=== PATIENT | female | born 1930 | race Asian ===

== ENCOUNTER 2018-03-04 13:36 | Inpatient (IN) | payer OTHER ==
[~2018-03-04] VITALS: Ht 137.2 cm; Wt 33.2 kg
[~2018-03-04 13:36] MED LIST: ASPIR-LOW81 MG PO; CALCIUM + VITA1 EAC1 PO; DITROPAN XL10 MG PO; LIDEX 0.05% OIN15 GM TP; PERSANTINE50 MG PO; TWYNSTA PO; ULTRAM50 MG PO
[2018-03-04 14:44] LABS: TROP-I INTERPRETATION NEGATIVE; TROPONIN-I < 0.01 ng/mL (0.0-0.30)
[2018-03-04 14:49] LABS: ALBUMIN 4.1 G/DL (3.2-4.8); ALKALINE PHOSPHATASE 95 IU/L (3-129); ALT (GPT) 11 IU/L (3-49); AST (GOT) 24 IU/L (2-34); CREATININE 0.7 MG/DL (0.6-1.3); GFR ESTIMATE (CALCULATED) > 59 mL/min/; GLUCOSE 161 mg/dL (70-99); TOTAL PROTEIN 6.9 G/DL (6.4-8.3); UREA NITROGEN (BUN) 14 mg/dL (9-23)
[2018-03-04 14:58] LABS: HEMATOCRIT 33.7 % (36.0-46.0); HEMOGLOBIN 12.5 G/DL (11.9-15.5); MCH 31.2 PG (29.0-34.0); MCHC 37.1 G/DL (30.0-36.0); PLATELET COUNT 184 K/uL (156-360); RBC DIS.WIDTH-CV 11.9 % (11.8-14.6); RBC DIS.WIDTH-SD 36.1 % (39-53); RED BLOOD COUNT 4.01 M/uL (3.80-5.20); WHITE BLOOD COUNT 6.5 K/uL (4.1-10.2)
[2018-03-04 15:02] LABS: CHLORIDE 78 MEQ/L (99-109); POTASSIUM 3.1 MEQ/L (3.7-5.4)
[2018-03-04 15:06] LABS: SODIUM 109 MEQ/L (136-147)
[2018-03-04] MEDS ORDERED: DILTIAZEM 24HR300 MG PO (15:45)
[2018-03-04] MEDS ORDERED: VITAMIN D31000 UNI2 PO (15:45)
[2018-03-04] MEDS ORDERED: HYGROTON25 MG PO (15:46)
[2018-03-04] MEDS ORDERED: COZAAR25 MG PO (15:47)
[2018-03-04 16:37] LABS: MAGNESIUM 1.4 mg/dl (1.3-2.7); URIC ACID 2.9 mg/dL (3.1-9.2)
[2018-03-04 17:37] VITALS: BP 163/81
[2018-03-04 19:17] LABS: TROP-I INTERPRETATION NEGATIVE; TROPONIN-I < 0.01 ng/mL (0.0-0.30)
[2018-03-04 19:26] LABS: CHLORIDE 77 MEQ/L (99-109); CREATININE 0.6 MG/DL (0.6-1.3); GFR ESTIMATE (CALCULATED) > 59 mL/min/; GLUCOSE 177 mg/dL (70-99); POTASSIUM 2.9 MEQ/L (3.7-5.4); UREA NITROGEN (BUN) 15 mg/dL (9-23)
[2018-03-04 19:33] LABS: SODIUM 109 MEQ/L (136-147)
[2018-03-04 23:54] VITALS: BP 122/62; BP 131/69
[2018-03-05] VITALS (8 sets, daily range): BP systolic 83–133; BP diastolic 51–79
[2018-03-05 00:48] LABS: CHLORIDE 80 mEq/L (99-109)
[2018-03-05 01:00] LABS: TROP-I INTERPRETATION NEGATIVE; TROPONIN-I 0.02 ng/mL (0.0-0.30)
[2018-03-05 01:11] LABS: CREATININE 0.8 mg/dL (0.6-1.3); GFR ESTIMATE (CALCULATED) > 59 mL/min/
[2018-03-05 01:12] LABS: UREA NITROGEN (BUN) 18 mg/dL (9-23)
[2018-03-05 01:15] LABS: GLUCOSE 114 mg/dL (70-99); POTASSIUM 3.9 mEq/L (3.7-5.4); SODIUM 111 mEq/L (136-147)
[2018-03-05 07:52] LABS: ALBUMIN 3.3 G/DL (3.2-4.8); CHLORIDE 84 MEQ/L (99-109); CREATININE 0.8 MG/DL (0.6-1.3); GFR ESTIMATE (CALCULATED) > 59 mL/min/; GLUCOSE 91 mg/dL (70-99); PHOSPHORUS 3.1 mg/dL (2.5-4.9); UREA NITROGEN (BUN) 19 mg/dL (9-23)
[2018-03-05 07:53] LABS: TROP-I INTERPRETATION NEGATIVE; TROPONIN-I 0.02 ng/mL (0.0-0.30)
[2018-03-05 07:55] LABS: POTASSIUM 4.8 MEQ/L (3.7-5.4)
[2018-03-05 07:56] LABS: SODIUM 111 MEQ/L (136-147)
[2018-03-05 08:11] LABS: BASOPHIL (%) 0.1 % (0-1); EOSINOPHIL (%) 0.4 % (0-5); HEMATOCRIT 33.2 % (36.0-46.0); HEMOGLOBIN 12.5 G/DL (11.9-15.5); IMMATURE GRANULOCYTE (%) 0.4 % (0.0-0.7); LYMPHOCYTE (%) 7.4 % (15-42); LYMPHOCYTE COUNT 0.6 K/uL (1.0-2.8); MCH 31.8 PG (29.0-34.0); MCHC 37.7 G/DL (30.0-36.0); MCV 84.5 FL (83-99); MONOCYTE (%) 8.3 % (3-12); MONOCYTE COUNT 0.7 K/uL (0-0.8); NEUTROPHIL (%) 83.4 % (45-76); PLATELET COUNT 196 K/uL (156-360); RBC DIS.WIDTH-CV 12.2 % (11.8-14.6); RBC DIS.WIDTH-SD 37.3 % (39-53); RED BLOOD COUNT 3.93 M/uL (3.80-5.20); WHITE BLOOD COUNT 8.3 K/uL (4.1-10.2)
[2018-03-05 14:16] LABS: APPEARANCE CLEAR ((CLEAR)); BILIRUBIN NEGATIVE; BLOOD NEGATIVE; COLOR YELLOW ((YELLOW)); GLUCOSE (STRIP) 50; KETONES NEGATIVE; LEUKOCYTES NEGATIVE; NITRITE NEGATIVE; PROTEIN (STRIP) NEGATIVE; SPECIFIC GRAVITY 1.015 (1.000-1.030); UCUL ADDED? NO; UROBILINOGEN 0.2 MG/DL (0.2-1.0)
[2018-03-05 17:09] LABS: CHLORIDE 86 MEQ/L (99-109); CREATININE 1.1 MG/DL (0.6-1.3); GFR ESTIMATE (CALCULATED) 50 mL/min/; GLUCOSE 125 mg/dL (70-99); POTASSIUM 5.1 MEQ/L (3.7-5.4); UREA NITROGEN (BUN) 25 mg/dL (9-23)
[2018-03-05 17:10] LABS: SODIUM 111 MEQ/L (136-147)
[2018-03-05 20:40] LABS: CHLORIDE 87 MEQ/L (99-109); CREATININE 1.2 MG/DL (0.6-1.3); GFR ESTIMATE (CALCULATED) 45 mL/min/; GLUCOSE 133 mg/dL (70-99); POTASSIUM 5.3 MEQ/L (3.7-5.4); UREA NITROGEN (BUN) 24 mg/dL (9-23)
[2018-03-05 20:50] LABS: SODIUM 111 MEQ/L (136-147)
[2018-03-06] VITALS (7 sets, daily range): BP systolic 117–187; BP diastolic 68–96
[2018-03-06 00:59] LABS: POTASSIUM 5.3 mEq/L (3.7-5.4)
[2018-03-06 01:01] LABS: GLUCOSE 102 mg/dL (70-99)
[2018-03-06 01:05] LABS: GFR ESTIMATE (CALCULATED) 56 mL/min/
[2018-03-06 01:06] LABS: UREA NITROGEN (BUN) 22 mg/dL (9-23)
[2018-03-06 01:21] LABS: CHLORIDE 92 mEq/L (99-109); SODIUM 117 mEq/L (136-147)
[2018-03-06 05:46] LABS: BASOPHIL (%) 0.2 % (0-1); EOSINOPHIL (%) 0.9 % (0-5); EOSINOPHIL COUNT 0.1 K/uL (0-0.3); HEMATOCRIT 30.9 % (36.0-46.0); HEMOGLOBIN 11.2 G/DL (11.9-15.5); IMMATURE GRANULOCYTE (%) 0.5 % (0.0-0.7); LYMPHOCYTE (%) 20.8 % (15-42); LYMPHOCYTE COUNT 1.2 K/uL (1.0-2.8); MCH 31.4 PG (29.0-34.0); MCHC 36.2 G/DL (30.0-36.0); MCV 86.6 FL (83-99); MONOCYTE (%) 13.3 % (3-12); MONOCYTE COUNT 0.8 K/uL (0-0.8); NEUTROPHIL (%) 64.3 % (45-76); NEUTROPHIL COUNT 3.7 K/uL (1.8-6.4); PLATELET COUNT 185 K/uL (156-360); RBC DIS.WIDTH-CV 12.7 % (11.8-14.6); RBC DIS.WIDTH-SD 40.1 % (39-53); RED BLOOD COUNT 3.57 M/uL (3.80-5.20); WHITE BLOOD COUNT 5.7 K/uL (4.1-10.2)
[2018-03-06 06:21] LABS: ALKALINE PHOSPHATASE 83 IU/L (3-129); ALT (GPT) 11 IU/L (3-49); AST (GOT) 20 IU/L (2-34); CHLORIDE 93 MEQ/L (99-109); CREATININE 0.9 MG/DL (0.6-1.3); GFR ESTIMATE (CALCULATED) > 59 mL/min/; GLUCOSE 97 mg/dL (70-99); POTASSIUM 5.5 MEQ/L (3.7-5.4); UREA NITROGEN (BUN) 21 mg/dL (9-23)
[2018-03-06 06:26] LABS: SODIUM 118 MEQ/L (136-147); TOTAL BILIRUBIN 0.5 MG/DL (0.0-1.0); TOTAL PROTEIN 5.2 G/DL (6.4-8.3)
[2018-03-06 07:09] LABS: TROP-I INTERPRETATION NEGATIVE; TROPONIN-I 0.01 ng/mL (0.0-0.30)
[2018-03-06 08:52] LABS: THYROTROPIN (TSH) 1.5 MIU/L (0.4-5.5)
[2018-03-06 12:16] LABS: D-DIMER ELISA < 150.00 ng/mLDDU (<230)
[2018-03-06 14:28] LABS: CHLORIDE 96 MEQ/L (99-109); CREATININE 0.9 MG/DL (0.6-1.3); GFR ESTIMATE (CALCULATED) > 59 mL/min/; POTASSIUM 4.4 MEQ/L (3.7-5.4); SODIUM 121 MEQ/L (136-147); UREA NITROGEN (BUN) 18 mg/dL (9-23)
[2018-03-06 14:32] LABS: GLUCOSE 179 mg/dL (70-99)
[2018-03-06 18:54] LABS: CHLORIDE 97 MEQ/L (99-109); GFR ESTIMATE (CALCULATED) 56 mL/min/; POTASSIUM 4.7 MEQ/L (3.7-5.4); SODIUM 122 MEQ/L (136-147); UREA NITROGEN (BUN) 18 mg/dL (9-23)
[2018-03-06 18:55] LABS: GLUCOSE 95 mg/dL (70-99)
[2018-03-07 00:47] LABS: CHLORIDE 97 mEq/L (99-109); POTASSIUM 3.9 mEq/L (3.7-5.4); SODIUM 126 mEq/L (136-147)
[2018-03-07 00:49] LABS: GLUCOSE 103 mg/dL (70-99)
[2018-03-07 00:53] LABS: CREATININE 0.8 mg/dL (0.6-1.3); GFR ESTIMATE (CALCULATED) > 59 mL/min/
[2018-03-07 00:54] LABS: UREA NITROGEN (BUN) 15 mg/dL (9-23)
[2018-03-07 03:44] VITALS: BP 140/87
[2018-03-07 07:13] LABS: CHLORIDE 96 MEQ/L (99-109); CREATININE 0.8 MG/DL (0.6-1.3); GFR ESTIMATE (CALCULATED) > 59 mL/min/; GLUCOSE 86 mg/dL (70-99); POTASSIUM 3.8 MEQ/L (3.7-5.4); SODIUM 127 MEQ/L (136-147); UREA NITROGEN (BUN) 15 mg/dL (9-23)
[2018-03-07 08:37] VITALS: BP 148/98
[2018-03-07 11:00] VITALS: BP 138/84
[2018-03-07 12:12] LABS: CHLORIDE 94 MEQ/L (99-109); CREATININE 0.8 MG/DL (0.6-1.3); GFR ESTIMATE (CALCULATED) > 59 mL/min/; GLUCOSE 103 mg/dL (70-99); POTASSIUM 3.4 MEQ/L (3.7-5.4); SODIUM 124 MEQ/L (136-147); UREA NITROGEN (BUN) 16 mg/dL (9-23)
[2018-03-07 16:19] VITALS: BP 179/87
[2018-03-07 18:22] LABS: CHLORIDE 96 MEQ/L (99-109); CREATININE 0.9 MG/DL (0.6-1.3); GFR ESTIMATE (CALCULATED) > 59 mL/min/; GLUCOSE 125 mg/dL (70-99); SODIUM 125 MEQ/L (136-147); UREA NITROGEN (BUN) 21 mg/dL (9-23)
[2018-03-07 18:23] LABS: POTASSIUM 4.3 MEQ/L (3.7-5.4)
[2018-03-07 21:17] VITALS: BP 168/92
[2018-03-07 23:45] VITALS: BP 152/85
[2018-03-08 04:00] VITALS: BP 170/88
[2018-03-08 06:47] LABS: BASOPHIL (%) 0.3 % (0-1); EOSINOPHIL (%) 0.9 % (0-5); EOSINOPHIL COUNT 0.1 K/uL (0-0.3); HEMOGLOBIN 11.4 G/DL (11.9-15.5); IMMATURE GRANULOCYTE (%) 0.3 % (0.0-0.7); LYMPHOCYTE (%) 11.1 % (15-42); LYMPHOCYTE COUNT 1.2 K/uL (1.0-2.8); MCH 31.5 PG (29.0-34.0); MCHC 35.6 G/DL (30.0-36.0); MCV 88.4 FL (83-99); MONOCYTE (%) 9.9 % (3-12); NEUTROPHIL (%) 77.5 % (45-76); NEUTROPHIL COUNT 8.2 K/uL (1.8-6.4); PLATELET COUNT 173 K/uL (156-360); RBC DIS.WIDTH-CV 12.5 % (11.8-14.6); RBC DIS.WIDTH-SD 40.3 % (39-53); RED BLOOD COUNT 3.62 M/uL (3.80-5.20); WHITE BLOOD COUNT 10.5 K/uL (4.1-10.2)
[2018-03-08 07:06] LABS: CHLORIDE 96 MEQ/L (99-109); CREATININE 0.8 MG/DL (0.6-1.3); GFR ESTIMATE (CALCULATED) > 59 mL/min/; POTASSIUM 4.2 MEQ/L (3.7-5.4); SODIUM 126 MEQ/L (136-147); UREA NITROGEN (BUN) 18 mg/dL (9-23)
[2018-03-08 07:08] LABS: GLUCOSE 90 mg/dL (70-99)
[2018-03-08 10:21] VITALS: BP 125/80
[2018-03-08 12:47] VITALS: BP 132/86
[2018-03-08 16:53] VITALS: BP 162/94
[2018-03-08 19:11] LABS: APPEARANCE CLOUDY ((CLEAR)); BILIRUBIN NEGATIVE; BLOOD LARGE; COLOR YELLOW ((YELLOW)); GLUCOSE (STRIP) NEGATIVE; KETONES NEGATIVE; LEUKOCYTES LARGE; NITRITE POSITIVE; PROTEIN (STRIP) 100; SPECIFIC GRAVITY 1.017 (1.000-1.030); UROBILINOGEN 0.2 MG/DL (0.2-1.0)
[2018-03-08 19:44] LABS: WHITE BLOOD CELLS TNTC /HPF (0-5)
[2018-03-08 19:45] LABS: EPITHELIAL CELLS RARE /HPF
[2018-03-08 19:47] LABS: BACTERIA 4+ /HPF
[2018-03-09 00:12] VITALS: BP 151/75
[2018-03-09 06:43] LABS: BASOPHIL (%) 0.2 % (0-1); EOSINOPHIL (%) 1.1 % (0-5); EOSINOPHIL COUNT 0.1 K/uL (0-0.3); HEMATOCRIT 29.7 % (36.0-46.0); HEMOGLOBIN 10.7 G/DL (11.9-15.5); IMMATURE GRANULOCYTE (%) 0.4 % (0.0-0.7); MCH 31.8 PG (29.0-34.0); MCV 88.4 FL (83-99); MONOCYTE (%) 10.1 % (3-12); MONOCYTE COUNT 1.1 K/uL (0-0.8); NEUTROPHIL (%) 79.2 % (45-76); NEUTROPHIL COUNT 8.7 K/uL (1.8-6.4); PLATELET COUNT 159 K/uL (156-360); RBC DIS.WIDTH-CV 12.5 % (11.8-14.6); RBC DIS.WIDTH-SD 40.3 % (39-53); RED BLOOD COUNT 3.36 M/uL (3.80-5.20); WHITE BLOOD COUNT 10.9 K/uL (4.1-10.2)
[2018-03-09 07:05] LABS: CHLORIDE 98 MEQ/L (99-109); CREATININE 0.8 MG/DL (0.6-1.3); GFR ESTIMATE (CALCULATED) > 59 mL/min/; GLUCOSE 101 mg/dL (70-99); POTASSIUM 4.1 MEQ/L (3.7-5.4); SODIUM 128 MEQ/L (136-147); UREA NITROGEN (BUN) 22 mg/dL (9-23)
[2018-03-09 07:49] VITALS: BP 132/77
[2018-03-09 15:56] VITALS: BP 130/75
[2018-03-10 00:17] VITALS: BP 164/85
[2018-03-10 06:09] LABS: CHLORIDE 102 MEQ/L (99-109); CREATININE 0.7 MG/DL (0.6-1.3); GFR ESTIMATE (CALCULATED) > 59 mL/min/; GLUCOSE 87 mg/dL (70-99); POTASSIUM 3.9 MEQ/L (3.7-5.4); SODIUM 134 MEQ/L (136-147); UREA NITROGEN (BUN) 20 mg/dL (9-23)
[2018-03-10 07:43] VITALS: BP 166/83
[2018-03-10] MEDS ORDERED: FUROSEMIDE20 MG PO (11:09)
[2018-03-10] MEDS ORDERED: KEFLEX500 MG PO (11:10)
[2018-03-10] MEDS ORDERED: SODIUM CHLORIDE1 G1 PO (11:12)
== END 2018-03-10 12:30 | disposition home or self-care (01) | DRG 641 ==
LOC: EME 13:36 → 4EAST 15:53 → EDOF 15:53 → ENRESERV 15:55 → 4EAST 17:24 → ENRESERV 03-06 12:55 → 2EAST 03-06 16:50
PROVIDERS: Hospitalist; Internal Medicine Nephrology; Nurse Practitioner Family
DX: E87.1 Hypo-osmolality and hyponatremia (principal); N39.0 Urinary tract infection, site not specified; E87.6 Hypokalemia; J44.9 Chronic obstructive pulmonary disease, unspecified; R62.7 Adult failure to thrive; K22.4 Dyskinesia of esophagus; R32 Unspecified urinary incontinence; R07.89 Other chest pain; Z68.1 Body mass index [BMI] 19.9 or less, adult; I10 Essential (primary) hypertension; E87.5 Hyperkalemia; Z91.81 History of falling
CPT/HCPCS: 70450; 71045; 71046; 80048; 80048 91; 80053; 80069; 81003; 82533 91; 82948; 83735; 83930; 83935; 84300; 84443; 84484; 84550; 85025; 85027; 85379; 87077; 87086; 87147; 87186; 92610 GN; 93005; 94760; 97530 GO; 99202; 99281; 99284; J0360; J0696; J1170; J1644; J1815; J2405; J3475; J7030; S0028